=== PATIENT | female | born 1995 | race Caucasian/White ===

== ENCOUNTER 2018-12-19 15:02 | Emergency (ER) | payer OTHER ==
[2018-12-19 15:22] LABS: Bilirubin Negative (Negative); Blood, Urine Trace (Negative); Clarity Clear (Clear); Glucose, Urine (Dipstick) Negative (Negative); Leukocyte Negative (Negative); Nitrite Negative (Negative); Protein, Urine (Dipstick) Negative (Neg-Trace)
[2018-12-19 15:23] LABS: Bacteria/HPF 1+ HPF (None Seen); RBC/HPF 0-3 HPF (0-3); Squamous Epithelial 21-50 HPF (0-3); WBC/HPF None Seen HPF (0-3)
[2018-12-19 15:25] LABS: Pregnancy Test - Urine (BHCG) Negative (Negative); Pregu Control Background? CLEAR/WHITE (CLR/WHITE); Pregu Control Bar Appear? YES (CONTROL BAR); Specific Gravity 1.025 (1.002-1.036)
[2018-12-19 15:31] LABS: #Basophils 0.1 thou/uL (0.0-0.2); #Eosinphils 0.1 thou/uL (0.0-0.7); #Lymphocytes 2.6 thou/uL (1.20-3.40); #Monocytes 0.7 thou/uL (0.11-0.59); #Neutrophils 7.4 thou/uL (1.40-6.50); %Basophils 0.7 % (0.0-1.0); %Eosinophils 1.1 % (0.0-10.0); %Lymphocytes 24.1 % (21.0-51.0); %Monocytes 6.5 % (0.0-10.0); %Neutrophils 67.7 % (42.0-75.0); Hemoglobin 13.6 g/dL (12.0-16.0); Mean Corpuscular HGB CONC 32.8 g/dL (32.0-36.0); Mean Corpuscular Hemoglobin 28.9 pg (27.0-31.0); Mean Corpuscular Volume 88.2 fL (78.0-98.0); Mean Platelet Volume 7.4 fL (7.4-10.4); Platelet Count 354 thou/uL (130-400); RBC Distribution Width 10.8 % (11.5-14.5); Red Blood Cell (RBC) Count 4.72 mill/uL (4.20-5.40); White Blood Cell (WBC) Count 10.9 thou/uL (4.8-10.8)
[2018-12-19 15:46] LABS: ALT (SGPT) 15 U/L (8-55); AST (SGOT) 17 U/L (5-34); Albumin 4.5 g/dL (3.5-5.0); Alkaline Phosphatase 44 U/L (40-110); Anion Gap 15 mmol/L (10-20); BUN (Urea Nitrogen) 8 mg/dL (7.0-18.7); Bilirubin, Total 0.3 mg/dL (0.2-1.2); Calc. Creatinine Clearance 0 mL/min (70-130); Calcium 9.1 mg/dL (7.8-10.44); Carbon Dioxide 26 mmol/L (22-29); Chloride 105 mmol/L (98-107); Estimated GFR-MDRD Greater than 90; Globulin 3.1 g/dL (2.4-3.5); Glucose 92 mg/dL (70-105); Lipase 16 U/L (8-78); Potassium 3.8 mmol/L (3.5-5.1); Protein, Total 7.6 g/dL (6.0-8.3); Sodium 142 mmol/L (136-145)
[2018-12-19] MEDS ORDERED: Ketorolac Tromethamine 30 MG/ML VIAL ONE (17:23)
--- NOTE | 2018-12-19 17:34 | CT ---
CT ABDOMEN AND PELVIS WITH CONTRAST: 12/19/18 INDICATIONS: Abdominal pain. Lung bases clear. Liver, spleen, pancreas unremarkable. Adrenal glands and kidneys unremarkable. Small bowel loops appear normal. Appendix is identified and appears normal caliber and unremarkable. There are several small follicular cysts in the right ovary with the largest measuring approximately 1.5 cm. No significant free fluid. Uterus is unremarkable. IMPRESSION: No acute process. The right ovary is prominent with several follicular cysts present which may be jhoan ology for patient's right lower quadrant pain. POS: PATRICK
== END 2018-12-19 17:34 | disposition home or self-care (01) ==
LOC: SCSER 15:02
DX: N83.201 Unspecified ovarian cyst, right side (principal)
CPT/HCPCS: 74177; 80053; 81003; 81015; 81025; 83690; 85025; 96374; J1885

== ENCOUNTER 2019-09-28 10:56 | Outpatient (CLI) | payer OTHER ==
--- NOTE | 2019-09-28 11:34 | ULT ---
SONOGRAPHIC EVALUATION OF ABDOMINAL WALL: Date: 09/28/2019 INDICATION: Palpable abnormality superior to umbilicus. COMPARISON: Prior CT abdomen and pelvis dated 12/19/2018. FINDINGS: Sonographic evaluation of the palpable region of interest demonstrates no suspicious abnormality. No definite hernia is noted. IMPRESSION: No sonographic abnormality seen within the palpable region of interest. POS: BH
== END 2019-09-28 10:57 | disposition home or self-care (01) ==
LOC: SCSULT 10:56
PROVIDERS: ATTEND Family Medicine
DX: R19.00 Intra-abdominal and pelvic swelling, mass and lump, unspecified site (principal)
CPT/HCPCS: 76705